=== PATIENT | male | born 1990 | race Caucasian/White ===

== ENCOUNTER 2017-05-31 12:40 | Emergency (ER) | payer SELFPAY ==
[~2017-05-31] VITALS: Ht 185.4 cm; Wt 118.2 kg
[2017-05-31 12:56] VITALS: BP 137/81
[2017-05-31 13:44] LABS: INFLUENZA A NEGATIVE; INFLUENZA B NEGATIVE
[2017-05-31 14:53] VITALS: PULSE 98; TEMP 100.2
== END 2017-05-31 15:07 | disposition home or self-care (01) ==
LOC: COL.ER 12:40
PROVIDERS: Emergency Medicine
DX: J11.1 Influenza due to unidentified influenza virus with other respiratory manifestations (principal)